=== PATIENT | male | born 1995 | race African-American/Black ===

== ENCOUNTER 2019-09-03 04:15 | Emergency (ER) | payer OTHER ==
[~2019-09-03] VITALS: Ht 172.7 cm; Wt 85.3 kg
[~2019-09-03 04:15] MED LIST: ACETAMINOPHEN-1 EAC1 PO; IBUPROFEN 600600 M1 PO; PHENERGAN 25 MG25 M1 PO; PROVENTIL
[2019-09-03 06:01] LABS: ABSOLUTE NEUTROPHILS 11.2 thou/uL (1.4-8.2); BASOPHILS 0.6 % (0.0-2.0); CALCIUM 10.1 mg/dL (8.5-10.1); CREATININE 2.4 mg/dL (0.7-1.3); EOSINOPHILS 0.2 % (0.0-3.0); HEMOGLOBIN 16.3 gm/dL (14.0-18.0); LYMPHOCYTES 11.5 % (24.0-44.0); MAGNESIUM 2.4 mg/dL (1.8-2.4); MCH 31.4 pg (26.0-34.0); MCV 92.2 fL (80.0-100.0); MONOCYTES 6.3 % (1.0-8.0); PLATELET COUNT 425 thou/uL (150-400); POLYS 81.4 % (36.0-66.0); POTASSIUM 4.3 mmol/L (3.5-5.1); RBC 5.21 mil/uL (4.50-6.00); RDW 13.5 % (10.5-14.5); WBC 13.8 thou/uL (4.0-11.0)
[2019-09-03] MEDS ORDERED: PROTONIX40 M2 PO (06:51)
[2019-09-03 06:59] VITALS: BP 127/85
== END 2019-09-03 07:10 | disposition home or self-care (01) ==
LOC: ER 04:15
PROVIDERS: Emergency Medicine
DX: R11.2 Nausea with vomiting, unspecified (principal); R79.89 Other specified abnormal findings of blood chemistry; J45.909 Unspecified asthma, uncomplicated; Z79.899 Other long term (current) drug therapy